=== PATIENT | male | born 1955 | race African-American/Black ===

== ENCOUNTER 2020-01-22 11:31 | Emergency (ER) | payer OTHER ==
[~2020-01-22] VITALS: Ht 185.4 cm; Wt 72.6 kg
[~2020-01-22 11:31] MED LIST: MOBIC15 MG PO
[2020-01-22 12:02] LABS: URINE BILIRUBIN NEGATIVE (Negative); URINE BLOOD NEGATIVE (Negative); URINE CLARITY CLEAR; URINE COLOR YELLOW; URINE GLUCOSE-RANDOM* NEGATIVE (Negative); URINE KETONES NEGATIVE (Negative); URINE LEUKOCYTES-REFLEX NEGATIVE (Negative); URINE NITRITE-REFLEX NEGATIVE (Negative); URINE PROTEIN (DIPSTICK) NEGATIVE (Negative); URINE SPECIFIC GRAVITY >= 1.030 (1.005-1.035)
[2020-01-22 12:12] LABS: AMP/METHAMP Negative (Negative); BARBITURATES Negative (Negative); BENZODIAZEPINES Negative (Negative); COCAINE Negative (Negative); METHADONE Negative (Negative); OPIATES Negative (Negative); PCP Negative (Negative)
[2020-01-22 12:20] LABS: HEMOGLOBIN 7.5 gm/dL (14.0-18.0)
[2020-01-22 12:21] LABS: HEMATOCRIT 22.7 % (42.0-52.0); MCV 105.9 fL (80.0-100.0); PLATELET COUNT 193 thou/uL (150-400); RBC 2.15 mil/uL (4.50-6.00); RDW 18.5 % (10.5-14.5); WBC 3.8 thou/uL (4.0-11.0)
[2020-01-22 12:23] LABS: CALCIUM 9.1 mg/dL (8.5-10.1); CREATININE 0.9 mg/dL (0.7-1.3); POTASSIUM 4.3 mmol/L (3.5-5.1)
[2020-01-22 12:28] LABS: ALBUMIN 3.7 g/dL (3.4-5.0); TOTAL BILIRUBIN 1.1 mg/dL (0.2-1.0); TOTAL PROTEIN 7.3 g/dL (6.4-8.2)
[2020-01-22 12:46] LABS: ABSOLUTE NEUTROPHILS 1.3 thou/uL (1.4-8.2)
[2020-01-22 12:47] LABS: ANISOCYTOSIS 2+; HYPOCHROMASIA 1+; MACROCYTES 2+
[2020-01-22 12:48] LABS: TARGET CELLS 1+
[2020-01-22 16:23] VITALS: BP 98/62
== END 2020-01-22 16:24 | disposition home or self-care (01) ==
LOC: ER 11:31
PROVIDERS: Physician Assistant
DX: D64.9 Anemia, unspecified (principal); F32.9 Major depressive disorder, single episode, unspecified; Z88.0 Allergy status to penicillin; Z88.6 Allergy status to analgesic agent; Z20.828 Contact with and (suspected) exposure to other viral communicable diseases